=== PATIENT | female | born 1975 | race Caucasian/White ===

== ENCOUNTER 2016-11-04 10:44 | Emergency (ER) | payer OTHER ==
[~2016-11-04] VITALS: Ht 162.6 cm; Wt 59.9 kg
--- NOTE | ~2016-11-04 | CR63 ---
[facility] A Service of [facility] & [facility] RADIOLOGY TEXT RESULTS PATIENT: LISSY PETERS LOCATION: CFTX : 79 UNIT #: [id number] AGE: [address]: Tania Buchanan SEX: F ORDER DR: [id number] [facility] [address] [place], [place] [address] [id number] MR#: [id number] Acc #: [id number] NAME: LISSY PETERS. : 1975 SEX: F STUDY DATE/TIME: 11/04/2016 11:14 UNIT: [facility] ROOM: STUDY DESCRIPTION: CR Chest 2 View Attending Physician: Tania Buchanan Pa-C Ordering Physician: Tania Buchanan Pa-C Primary Care Physician: Primary Care Physician No MEDICAL IMAGING REPORT This report is preliminary unless electronic signature is present EXAM Chest 2 views, 11/04/2016 11:14 hours HISTORY 41-year-old woman with cough, shortness of air for 1 week. COMPARISON 01/02/2015 FINDINGS Upright PA and lateral views of the chest demonstrate normal cardiac, mediastinal and hilar contours. The lungs are mildly hyperinflated but clear. There is no effusion or pneumothorax. IMPRESSION Pulmonary hyperinflation with calcified granulomatous changes. No acute cardiopulmonary findings. Dictated by... Blank Chapa M.D. THIS IS AN ELECTRONICALLY VERIFIED REPORT Blank Chapa M.D. at 11/04/2016 2:32 PM Ratna TD: 11/04/2016 13:13 JOB #: [id number] MEDICAL IMAGING REPORT Page 1 of 1 COPY
[~2016-11-04 10:44] MED LIST: DOXYCYCLINE PO; FLEXERIL10 MG PO; HYDROCODONE-APA1 T59 PO; IBUPROFEN800 MG PO; LISINOPRIL20 MG PO; LORTAB 5/500 TA1 TA1 PO; MOTRIN20 MG/ML PO; NAPROSYN500 MG PO; NORCO 5/325 TAB1 TAB PO; PHENERGAN25 MG PO
[2016-11-04 11:08] LABS: INFLUENZA A NEG (NEG); INFLUENZA B NEG (NEG)
== END 2016-11-04 12:00 | disposition home or self-care (01) ==
LOC: CED 10:44 → CFTX 10:44
PROVIDERS: Nurse Practitioner
DX: J02.0 Streptococcal pharyngitis (principal); I10 Essential (primary) hypertension; F17.210 Nicotine dependence, cigarettes, uncomplicated; Z98.51 Tubal ligation status
CPT/HCPCS: 71020; 87804; 87880; 99283; J0561